=== PATIENT | female | born 1965 | race Caucasian/White ===

== ENCOUNTER → 2018-07-03 15:51 | Outpatient (CLI) | payer OTHER, SELFPAY ==
--- NOTE | 2018-07-03 | DI.MG.S_ITS ---
BILATERAL DIGITAL SCREENING MAMMOGRAM 3D/2D WITH CAD: 07/03/2018 CLINICAL: Routine screening. Comparison is made to exams dated: 06/13/2017 mammogram, 12/14/2015 mammogram, and 12/10/2014 mammogram - [facility]. The tissue of both breasts is heterogeneously dense. This may lower the sensitivity of mammography. Current study was also evaluated with a Computer Aided Detection (CAD) system. No significant masses, calcifications, or other findings are seen in either breast. There has been no significant interval change. IMPRESSION: NEGATIVE There is no mammographic evidence of malignancy. A 1 year screening mammogram is recommended. This exam was interpreted at Station ID: [id number]. NOTE: For mammograms, a report in lay terms will be sent to the patient. Approximately 15% of breast malignancies will not be visualized mammographically. In the management of a palpable breast mass, a negative mammogram must not discourage biopsy of a clinically suspicious lesion. Electronically Signed By: Issa parks/tommy:07/03/2018 17:23:05 letter sent: Normal Exam ACR BI-RADS Category 1: Negative [id number]
== END ==
PROVIDERS: PCP Nurse Practitioner Family; Visit Provider Nurse Practitioner Family
DX: Z12.31 Encounter for screening mammogram for malignant neoplasm of breast (principal)
CPT/HCPCS: 77063; 77067

== ENCOUNTER 2018-12-09 18:25 | Emergency (ER) | payer OTHER, SELFPAY ==
[2018-12-09 18:26] VITALS: BP 154/77; PULSE 88; RESP 24; TEMP 36.7; O2SAT 100
--- NOTE | 2018-12-09 18:35 | ED.ABDPAIN ---
HPI - Abdominal Pain General Chief Complaint: Abdominal Pain Stated Complaint: ABD PAIN THROWING UP PAIN STARTED IN BACK Time Seen by Provider: 12/09/18 18:30 Source: patient and family Mode of arrival: ambulatory Limitations: no limitations History of Present Illness HPI narrative: 52-year-old female nonsmoker presents with her in the chief complaint of sudden onset left flank pain with radiation into her right groin. She denies provocation or palliation. She states it is sharp and stabbing in nature. She has nausea and vomiting. She denies any change in bowel habits. She has not had dysuria, frequency or urgency. She denies any history of kidney stones. She has had no injury MD complaint: flank pain Onset (ago): hour(s) Pain Consistency: intermittent Location: L flank Severity: severe Quality: stabbing Relieving factors: nothing Exacerbating factors: nothing Related Data Previous Rx's Medication Instructions Recorded cephalexin [Keflex] 500 mg PO QID 7 Days #28 cap 12/09/18 hydrocodone-acetaminophen 1 tab PO Q4-6H PRN #10 tab 12/09/18 ketorolac 10 mg PO Q6H PRN #14 tab 12/09/18 ondansetron 4 mg PO TID-QID PRN #10 tab 12/09/18 tamsulosin [Flomax] 0.4 mg PO DAILY #10 cap 12/09/18 Allergies Allergy/AdvReac Type Severity Reaction Status Date / Time codeine [CODEINE] Allergy Unknown Verified 12/09/18 18:33 Review of Systems Constitutional Denies chills, Denies fever(s), Denies lethargy and Denies weakness Eyes Denies change in vision, Denies eye discharge, Denies irritation and Denies loss of vision ENT Ears, Nose, Mouth, and Throat: Denies change in voice, Denies neck pain and Denies sore throat Cardiovascular Denies chest pain, Denies irregular heart rhythm, Denies lightheadedness, Denies palpitations, Denies dyspnea, Denies dyspnea on exertion and Denies orthopnea Respiratory Denies cough, Denies dyspnea, Denies dyspnea on exertion and Denies wheezing Gastrointestinal Gastrointestinal: Denies abdominal pain, Denies change in bowel habits, Denies diarrhea, Reports nausea and Reports vomiting Genitourinary Denies hematuria, Reports flank pain, Denies urinary incontinence and Denies urinary urgency Musculoskeletal Denies neck pain Integumentary/Breasts Denies pruritus, Denies erythema, Denies rash and Denies wounds Neurologic Denies confusion, Denies loss of vision and Denies weakness Psychiatric Denies anxiety, Denies confusion, Denies depression, Denies homicidal ideation and Denies suicidal ideation Endocrine Denies palpitations Hematologic/Lymphatic Denies easy bruising Allergic/Immunologic Denies wheezing PFSH Social History Smoking Status: Never smoker Social History Smoking Status: Never smoker Exam Narrative Exam Narrative: GENERAL: [52] year old patient appears stated age. Well-nourished, well-developed patient, in significant distress. Unable to remain still, rocking back and forth on her cart HEAD: Atraumatic. Normocephalic. EYES: Pupils equal round and reactive. Extraocular motions intact. No scleral icterus. No injection or drainage. ENT: Nose without bleeding, purulent drainage. Throat without erythema, tonsillar hypertrophy or exudate. Airway patent. NECK: Trachea midline. Non tender CARDIOVASCULAR: Regular rate and rhythm without murmurs, gallops, or rubs. RESPIRATORY: Clear to auscultation. Breath sounds equal bilaterally. No wheezes, rales, or rhonchi. GASTROINTESTINAL: Abdomen soft, non-tender, nondistended. EXTREMITIES: No edema or joint tenderness. BACK: Nontender without deformity or crepitance. No flank tenderness. NEURO: AOx3. SKIN: No rash or erythema of visible areas Initial Vital Signs Initial Vital Signs: Vital Signs Temperature 98.1 F 12/09/18 18:26 Pulse Rate 88 12/09/18 18:26 Respiratory Rate 24 12/09/18 18:26 Blood Pressure 154/77 H 12/09/18 18:26 Pulse Oximetry 100 12/09/18 18:26 Course Orders Ordered: Discontinued Medications Hydrocodone Bitart/Acetaminophen (Vicodin Prepack) 1 bottle MISC SEEINSTR ONE Stop: 12/09/18 20:24 Last Admin: 12/09/18 20:38 Dose: 1 bottle Sodium Chloride (Normal Saline 0.9%) 1,000 mls @ 1,000 mls/hr IV BOLUS ONE Stop: 12/09/18 19:32 Last Infusion: 12/09/18 20:47 Dose: 0 mls/hr Admin: 12/09/18 18:47 Dose: 1,000 mls/hr Sodium Chloride (Normal Saline 0.9%) 1,000 mls @ 1,000 mls/hr IV BOLUS ONE Stop: 12/09/18 19:40 Last Admin: 12/09/18 18:53 Dose: Not Given Ketorolac Tromethamine (Toradol) 30 mg IV NOW ONE Stop: 12/09/18 18:34 Last Admin: 12/09/18 18:47 Dose: 30 mg Ketorolac Tromethamine (Toradol) 15 mg IV NOW ONE Stop: 12/09/18 18:42 Last Admin: 12/09/18 18:52 Dose: Not Given Ondansetron HCl (Zofran) 4 mg IV NOW ONE Stop: 12/09/18 18:31 Last Admin: 12/09/18 18:46 Dose: 4 mg Ondansetron HCl (Zofran) 4 mg IV Q4HR PRN PRN Reason: Nausea And Vomiting Ondansetron HCl (Zofran Odt Prepack) 1 bottle MISC SEEINSTR ONE Stop: 12/09/18 20:24 Last Admin: 12/09/18 20:38 Dose: 1 bottle Reevaluation(s) Reevaluation #1: Patient shows tremendous improvement after being administered the above-stated medications Vital Signs - 8 hr 12/09/18 18:26 Temperature 98.1 F Pulse Rate 88 Respiratory Rate 24 Blood Pressure 154/77 H Pulse Oximetry 100 MDM - Abdominal Pain Differential Diagnosis Differential diagnosis: Likely calculus of kidney Lab Data Result diagrams: 12/09/18 18:40 12/09/18 18:40 Lab Results 12/09/18 12/09/18 12/09/18 Range/Units 18:40 18:40 18:40 WBC 10.0 (4.5-11.0) X10^3/uL RBC 4.17 (4.0-5.2) X10^6/uL Hgb 13.3 (12.0-16.0) g/dL Hct 40.1 (36-46) % MCV 96.3 (80-100) fL MCH 32.0 (26-34) PG MCHC 33.2 (30-36) % RDW 13.4 (11.6-14.8) % Plt Count 243 (150-400) X10^3/uL Neut % (Auto) 80.8 H (50-75) % Lymph % (Auto) 12.3 L (25-40) % Trigg % (Auto) 6.0 (3-14) % Eos % (Auto) 0.4 L (2-4) % Baso % (Auto) 0.5 (0-2) % Neut # (Auto) 8100 H (1827-9360) /uL Lymph # (Auto) 1200 (4853-0999) /uL Trigg # (Auto) 600 (0-900) /uL Eos # (Auto) 0 (0-450) /uL Baso # (Auto) 100 (0-100) /uL PT 11.3 (10.1-12.7) SECONDS INR 1.0 (0.9-1.3) APTT 27 (26.4-36.2) SECONDS Sodium 139 (137-145) mmol/L Potassium 3.9 (3.4-5.1) mmol/L Chloride 98 (98-107) mmol/L Carbon Dioxide 31 (22-32) mmol/L BUN 19 H (7-17) mg/dL Creatinine 1.00 (0.52-1.04) mg/dL Estimated GFR 58.0 L (>60) mL/min BUN/Creatinine Ratio 19.0 (6-22) Glucose 121 H (70-100) mg/dL Calcium 9.6 (8.4-10.2) mg/dL Magnesium (1.6-2.3) mg/dL Total Bilirubin 0.7 (0.2-1.3) mg/dL AST 31 (14-36) IU/L ALT 25 (9-52) IU/L Alkaline Phosphatase 46 (38-126) U/L Total Protein 7.5 (6.3-8.2) g/dL Albumin 4.6 (3.5-5.0) g/dL Globulin 2.9 (1.7-4.1) g/dL Albumin/Globulin Ratio 1.6 (1.0-2.8) Lipase 50 (23-300) U/L Urine RBC (0-5/HPF) Urine WBC (0-5/HPF) Ur Squamous Epith Cells (0-5/HPF) Urine Bacteria (None) Ur Culture Indicated? 12/09/18 12/09/18 Range/Units 18:40 19:11 WBC (4.5-11.0) X10^3/uL RBC (4.0-5.2) X10^6/uL Hgb (12.0-16.0) g/dL Hct (36-46) % MCV (80-100) fL MCH (26-34) PG MCHC (30-36) % RDW (11.6-14.8) % Plt Count (150-400) X10^3/uL Neut % (Auto) (50-75) % Lymph % (Auto) (25-40) % Trigg % (Auto) (3-14) % Eos % (Auto) (2-4) % Baso % (Auto) (0-2) % Neut # (Auto) (9981-7983) /uL Lymph # (Auto) (9347-0080) /uL Trigg # (Auto) (0-900) /uL Eos # (Auto) (0-450) /uL Baso # (Auto) (0-100) /uL PT (10.1-12.7) SECONDS INR (0.9-1.3) APTT (26.4-36.2) SECONDS Sodium (137-145) mmol/L Potassium (3.4-5.1) mmol/L Chloride (98-107) mmol/L Carbon Dioxide (22-32) mmol/L BUN (7-17) mg/dL Creatinine (0.52-1.04) mg/dL Estimated GFR (>60) mL/min BUN/Creatinine Ratio (6-22) Glucose (70-100) mg/dL Calcium (8.4-10.2) mg/dL Magnesium 1.6 (1.6-2.3) mg/dL Total Bilirubin (0.2-1.3) mg/dL AST (14-36) IU/L ALT (9-52) IU/L Alkaline Phosphatase (38-126) U/L Total Protein (6.3-8.2) g/dL Albumin (3.5-5.0) g/dL Globulin (1.7-4.1) g/dL Albumin/Globulin Ratio (1.0-2.8) Lipase (23-300) U/L Urine RBC 10-30/hpf H (0-5/HPF) Urine WBC 5-10/hpf H (0-5/HPF) Ur Squamous Epith Cells 10-30 /hpf H (0-5/HPF) Urine Bacteria Few (2-10) H (None) Ur Culture Indicated? Cult not indicated Point of care testing: Urine Dip Bedside Urine Glucose Negative Bedside Urine Bilirubin - Negative Bedside Urine Ketone ++ 40 Urine Specific [place] 1.015 Bedside Urine Occult Blood ++ Bedside Urine pH 7.0 Bedside Urine Protein +/- 15 Bedside Urine Urobilinogen - Negative Bedside Urine Nitrite - Negative Bedside Urine Leukocytes +/- [address] scan - abdomen: Radiologist's impression: atient: Lauren Willams [facility]#: [id number] : 1965Acct:[id number] Age/Sex: 52 / FDate of Service: 12/09/18 Loc: ED Accession Number: [id number] Procedure: CT kidney ureter bladder (KUB) Ordering Provider: Ramiro Preciado D.O. PROCEDURE: CT KIDNEY URETER BLADDER (KUB) INDICATIONS: severe colicky L flank pain, radiates to groin, 1st stone? TECHNIQUE: Noncontrast 5 mm thick sections acquired from the diaphragms to the symphysis. 5 mm thick coronal and sagittal reformats were then performed. For radiation dose reduction, the following was used: automated exposure control, adjustment of mA and/or kV according to patient size. COMPARISON: None. FINDINGS: Image quality: Excellent. Lung bases: Lung bases are clear. Heart size is normal. Urinary system: Both kidneys are normal in size. Punctate calcification is present in the left superior renal pole. It is too small for Hounsfield unit characterization. 2 mm calcification is present within the superior right renal pole, also too small for Hounsfield unit characterization. There is mild appearance of left hydronephrosis. There is a punctate calcification in the distal left ureter. Both ureters appear non-dilated throughout their expected courses. Bladder wall thickness is normal; no calcified bladder stones. Other solid organs: Liver is normal in size. Gallbladder is unremarkable. Pancreas is normal in contours. Spleen is normal in size. No adrenal nodules. Peritoneum and bowel: Unenhanced bowel loops demonstrate normal wall thickness and caliber. No free fluid or air. Nodes and vessels: No retroperitoneal or mesenteric adenopathy by size criteria. Aorta and inferior vena cava are normal in caliber. Abdominal wall: No ventral hernias. Pelvis: No free pelvic fluid. No inguinal hernias or adenopathy. Bones: No suspicious bony lesions. No vertebral body compression fractures. IMPRESSION: 1. Punctate distal left ureter calcifications with mild left hydronephrosis and perinephric stranding. 2. Punctate bilateral nonobstructing renal calculi. Dictated by: Beatrice Montiel M.D. on 12/09/2018 at 19:12 Approved by: Beatrice Montiel M.D. on 12/09/2018 at 19:15 Discharge Plan Departure Patient Disposition: Home Clinical Impression: Calculus of kidney Discharge Date/Time: 12/09/18 20:48 Interventions: ED Discharge Assessment Last Done: 12/09/18 20:48 Instructions: DI for Kidney Stones Activity Restrictions/Additional Instructions: *You have been diagnosed with [left-sided kidney stone] *What to do: *Take medications as directed *Follow up with your primary care provider in 2-3 days, call for an appointment. Let them know you were seen in the Emergency Department and that we ask that you be seen in follow up *Return to ER if you should have any new, worsening or concerning symptoms Prescriptions: New hydrocodone-acetaminophen 5-325 mg tablet 1 tab PO Q4-6H PRN (Reason: pain) Qty: 10 RF: 0 cephalexin [Keflex] 500 mg capsule 500 mg PO QID 7 Days Qty: 28 RF: 0 ketorolac 10 mg tablet 10 mg PO Q6H PRN (Reason: pain) Qty: 14 RF: 0 tamsulosin [Flomax] 0.4 mg capsule 0.4 mg PO DAILY Qty: 10 RF: 0 ondansetron 4 mg tablet,disintegrating 4 mg PO TID-QID PRN (Reason: nausea and vomiting) Qty: 10 RF: 0 Referrals: Patty Laura ARNP [Primary Care Provider] -
--- NOTE | 2018-12-09 18:41 | DI.CT.S_ITS ---
PROCEDURE: CT KIDNEY URETER BLADDER (KUB) INDICATIONS: severe colicky L flank pain, radiates to groin, 1st stone? TECHNIQUE: Noncontrast 5 mm thick sections acquired from the diaphragms to the symphysis. 5 mm thick coronal and sagittal reformats were then performed. For radiation dose reduction, the following was used: automated exposure control, adjustment of mA and/or kV according to patient size. COMPARISON: None. FINDINGS: Image quality: Excellent. Lung bases: Lung bases are clear. Heart size is normal. Urinary system: Both kidneys are normal in size. Punctate calcification is present in the left superior renal pole. It is too small for Hounsfield unit characterization. 2 mm calcification is present within the superior right renal pole, also too small for Hounsfield unit characterization. There is mild appearance of left hydronephrosis. There is a punctate calcification in the distal left ureter. Both ureters appear non-dilated throughout their expected courses. Bladder wall thickness is normal; no calcified bladder stones. Other solid organs: Liver is normal in size. Gallbladder is unremarkable. Pancreas is normal in contours. Spleen is normal in size. No adrenal nodules. Peritoneum and bowel: Unenhanced bowel loops demonstrate normal wall thickness and caliber. No free fluid or air. Nodes and vessels: No retroperitoneal or mesenteric adenopathy by size criteria. Aorta and inferior vena cava are normal in caliber. Abdominal wall: No ventral hernias. Pelvis: No free pelvic fluid. No inguinal hernias or adenopathy. Bones: No suspicious bony lesions. No vertebral body compression fractures. IMPRESSION: 1. Punctate distal left ureter calcifications with mild left hydronephrosis and perinephric stranding. 2. Punctate bilateral nonobstructing renal calculi. Dictated by: Beatrice Montiel M.D. on 12/09/2018 at 19:12 Approved by: Beatrice Montiel M.D. on 12/09/2018 at 19:15
[2018-12-09] MEDS: ONDANSETRON 4 MG/2 ML INJ IV (18:46)
[2018-12-09 18:47] LABS: Add Manual Diff / Slide Review NO; Basophils Absolute Auto 100 /uL (0-100); Basophils Percent Auto 0.5 % (0-2); Eosinophils Absolute Auto 0 /uL (0-450); Eosinophils Percent Auto 0.4 % (2-4); Hematocrit 40.1 % (36-46); Hemoglobin 13.3 g/dL (12.0-16.0); Lymphocytes Absolute Auto 1200 /uL (1100-4500); Lymphocytes Percent Auto 12.3 % (25-40); Mean Corpuscular HGB Conc 33.2 % (30-36); Mean Corpuscular Volume 96.3 fL (80-100); Monocytes Absolute Auto 600 /uL (0-900); Neutrophils Absolute Auto 8100 /uL (1500-7000); Neutrophils Percent Auto 80.8 % (50-75); Platelet Count 243 X10^3/uL (150-400); Red Blood Cell Count 4.17 X10^6/uL (4.0-5.2); Red Cell Distribution Width 13.4 % (11.6-14.8)
[2018-12-09] MEDS: KETOROLAC 60 MG/2 ML VIAL 30 MG IV (18:47)
[2018-12-09] MEDS: SODIUM CHLORIDE 0.9% 1,000 ML 1000 ML IV (18:47)
[2018-12-09 19:01] LABS: Alanine Aminotransferase 25 IU/L (9-52); Albumin 4.6 g/dL (3.5-5.0); Albumin Globulin Ratio 1.6 (1.0-2.8); Alkaline Phosphatase 46 U/L (38-126); Aspartate Aminotransferase 31 IU/L (14-36); Bilirubin Total 0.7 mg/dL (0.2-1.3); Blood Urea Nitrogen 19 mg/dL (7-17); Calcium 9.6 mg/dL (8.4-10.2); Carbon Dioxide 31 mmol/L (22-32); Chloride 98 mmol/L (98-107); Globulin 2.9 g/dL (1.7-4.1); Glucose 121 mg/dL (70-100); HEMOLYSIS < 15 (0-50); Lipase 50 U/L (23-300); Potassium 3.9 mmol/L (3.4-5.1); Sodium 139 mmol/L (137-145); Total Protein 7.5 g/dL (6.3-8.2)
[2018-12-09 19:06] LABS: Prothrombin Time 11.3 SECONDS (10.1-12.7)
[2018-12-09 19:08] LABS: Magnesium 1.6 mg/dL (1.6-2.3)
[2018-12-09 19:09] LABS: PTT Partial Thromboplastin Tim 27 SECONDS (26.4-36.2)
[2018-12-09 19:47] LABS: Bacteria Urine Few (2-10); Culture Indicated Urine Cult Not Indicated; RBC Urine 10-30/HPF (0-5/HPF); Squamous Epithelial Cell Urine 10-30 /HPF (0-5/HPF); WBC Urine 5-10/HPF (0-5/HPF)
[2018-12-09 19:54] VITALS: BP 130/78; PULSE 58; RESP 16; O2SAT 100
[2018-12-09 20:00] VITALS: BP 121/98; PULSE 67; RESP 17; O2SAT 100
[2018-12-09] MEDS: ONDANSETRON 4 MG ODT PREPACK 1 BOTTLE MISC (20:38)
[2018-12-09] MEDS: HYDROCODONE/ACET 5/325 PREPACK 1 BOTTLE MISC (20:38)
[2018-12-09 20:48] VITALS: BP 137/71; PULSE 61; RESP 16; O2SAT 100
--- NOTE | 2018-12-10 06:01 | ED_ITS ---
HPI - Abdominal Pain General Chief Complaint: Abdominal Pain Stated Complaint: ABD PAIN THROWING UP PAIN STARTED IN BACK Time Seen by Provider: 12/09/18 18:30 Source: patient and family Mode of arrival: ambulatory Limitations: no limitations History of Present Illness HPI narrative: 52-year-old female nonsmoker presents with her in the chief complaint of sudden onset left flank pain with radiation into her right groin. She denies provocation or palliation. She states it is sharp and stabbing in nature. She has nausea and vomiting. She denies any change in bowel habits. She has not had dysuria, frequency or urgency. She denies any history of kidney stones. She has had no injury MD complaint: flank pain Onset (ago): hour(s) Pain Consistency: intermittent Location: L flank Severity: severe Quality: stabbing Relieving factors: nothing Exacerbating factors: nothing Related Data Previous Rx's Medication Instructions Recorded cephalexin [Keflex] 500 mg PO QID 7 Days #28 cap 12/09/18 hydrocodone-acetaminophen 1 tab PO Q4-6H PRN #10 tab 12/09/18 ketorolac 10 mg PO Q6H PRN #14 tab 12/09/18 ondansetron 4 mg PO TID-QID PRN #10 tab 12/09/18 tamsulosin [Flomax] 0.4 mg PO DAILY #10 cap 12/09/18 Allergies Allergy/AdvReac Type Severity Reaction Status Date / Time codeine [CODEINE] Allergy Unknown Verified 12/09/18 18:33 Review of Systems Constitutional Denies chills, Denies fever(s), Denies lethargy and Denies weakness Eyes Denies change in vision, Denies eye discharge, Denies irritation and Denies loss of vision ENT Ears, Nose, Mouth, and Throat: Denies change in voice, Denies neck pain and Denies sore throat Cardiovascular Denies chest pain, Denies irregular heart rhythm, Denies lightheadedness, Denies palpitations, Denies dyspnea, Denies dyspnea on exertion and Denies orthopnea Respiratory Denies cough, Denies dyspnea, Denies dyspnea on exertion and Denies wheezing Gastrointestinal Gastrointestinal: Denies abdominal pain, Denies change in bowel habits, Denies diarrhea, Reports nausea and Reports vomiting Genitourinary Denies hematuria, Reports flank pain, Denies urinary incontinence and Denies urinary urgency Musculoskeletal Denies neck pain Integumentary/Breasts Denies pruritus, Denies erythema, Denies rash and Denies wounds Neurologic Denies confusion, Denies loss of vision and Denies weakness Psychiatric Denies anxiety, Denies confusion, Denies depression, Denies homicidal ideation and Denies suicidal ideation Endocrine Denies palpitations Hematologic/Lymphatic Denies easy bruising Allergic/Immunologic Denies wheezing PFSH Social History Smoking Status: Never smoker Social History Smoking Status: Never smoker Exam Narrative Exam Narrative: GENERAL: [52] year old patient appears stated age. Well-nourishe d, well-developed patient, in significant distress. Unable to remain still, rocking back and forth on her cart HEAD: Atraumatic. Normocephalic. EYES: Pupils equal round and reactive. Extraocular motions intact. No scleral icterus. No injection or drainage. ENT: Nose without bleeding, purulent drainage. Throat without erythema, tonsillar hypertrophy or exudate. Airway patent. NECK: Trachea midline. Non tender CARDIOVASCULAR: Regular rate and rhythm without murmurs, gallops, or rubs. RESPIRATORY: Clear to auscultation. Breath sounds equal bilaterally. No wheezes, rales, or rhonchi. GASTROINTESTINAL: Abdomen soft, non-tender, nondistended. EXTREMITIES: No edema or joint tenderness. BACK: Nontender without deformity or crepitance. No flank tenderness. NEURO: AOx3. SKIN: No rash or erythema of visible areas Initial Vital Signs Initial Vital Signs: Vital Signs Temperature 98.1 F 12/09/18 18:26 Pulse Rate 88 12/09/18 18:26 Respiratory Rate 24 12/09/18 18:26 Blood Pressure 154/77 H 12/09/18 18:26 Pulse Oximetry 100 12/09/18 18:26 Course Orders Ordered: Discontinued Medications Hydrocodone Bitart/Acetaminophen (Vicodin Prepack) 1 bottle MISC SEEINSTR ONE Stop: 12/09/18 20:24 Last Admin: 12/09/18 20:38 Dose: 1 bottle Sodium Chloride (Normal Saline 0.9%) 1,000 mls @ 1,000 mls/hr IV BOLUS ONE Stop: 12/09/18 19:32 Last Infusion: 12/09/18 20:47 Dose: 0 mls/hr Admin: 12/09/18 18:47 Dose: 1,000 mls/hr Sodium Chloride (Normal Saline 0.9%) 1,000 mls @ 1,000 mls/hr IV BOLUS ONE Stop: 12/09/18 19:40 Last Admin: 12/09/18 18:53 Dose: Not Given Ketorolac Tromethamine (Toradol) 30 mg IV NOW ONE Stop: 12/09/18 18:34 Last Admin: 12/09/18 18:47 Dose: 30 mg Ketorolac Tromethamine (Toradol) 15 mg IV NOW ONE Stop: 12/09/18 18:42 Last Admin: 12/09/18 18:52 Dose: Not Given Ondansetron HCl (Zofran) 4 mg IV NOW ONE Stop: 12/09/18 18:31 Last Admin: 12/09/18 18:46 Dose: 4 mg Ondansetron HCl (Zofran) 4 mg IV Q4HR PRN PRN Reason: Nausea And Vomiting Ondansetron HCl (Zofran Odt Prepack) 1 bottle MISC SEEINSTR ONE Stop: 12/09/18 20:24 Last Admin: 12/09/18 20:38 Dose: 1 bottle Reevaluation(s) Reevaluation #1: Patient shows tremendous improvement after being administered the above-stated medications Vital Signs - 8 hr 12/09/18 18:26 Temperature 98.1 F Pulse Rate 88 Respiratory Rate 24 Blood Pressure 154/77 H Pulse Oximetry 100 MDM - Abdominal Pain Differential Diagnosis Differential diagnosis: Likely calculus of kidney Lab Data Result diagrams: 12/09/18 18:40 12/09/18 18:40 Lab Results 12/09/18 12/09/18 12/09/18 Range/Units 18:40 18:40 18:40 WBC 10.0 (4.5-11.0) X10^3/uL RBC 4.17 (4.0-5.2) X10^6/uL Hgb 13.3 (12.0-16.0) g/dL Hct 40.1 (36-46) % MCV 96.3 (80-100) fL MCH 32.0 (26-34) PG MCHC 33.2 (30-36) % RDW 13.4 (11.6-14.8) % Plt Count 243 (150-400) X10^3/uL Neut % (Auto) 80.8 H (50-75) % Lymph % (Auto) 12.3 L (25-40) % Carver % (Auto) 6.0 (3-14) % Eos % (Auto) 0.4 L (2-4) % Baso % (Auto) 0.5 (0-2) % Neut # (Auto) 8100 H (0014-0134) /uL Lymph # (Auto) 1200 (5145-2533) /uL Carver # (Auto) 600 (0-900) /uL Eos # (Auto) 0 (0-450) /uL Baso # (Auto) 100 (0-100) /uL PT 11.3 (10.1-12.7) SECONDS INR 1.0 (0.9-1.3) APTT 27 (26.4-36.2) SECONDS Sodium 139 (137-145) mmol/L Potassium 3.9 (3.4-5.1) mmol/L Chloride 98 (98-107) mmol/L Carbon Dioxide 31 (22-32) mmol/L BUN 19 H (7-17) mg/dL Creatinine 1.00 (0.52-1.04) mg/dL Estimated GFR 58.0 L (>60) mL/min BUN/Creatinine Ratio 19.0 (6-22) Glucose 121 H (70-100) mg/dL Calcium 9.6 (8.4-10.2) mg/dL Magnesium (1.6-2.3) mg/dL Total Bilirubin 0.7 (0.2-1.3) mg/dL AST 31 (14-36) IU/L ALT 25 (9-52) IU/L Alkaline Phosphatase 46 (38-126) U/L Total Protein 7.5 (6.3-8.2) g/dL Albumin 4.6 (3.5-5.0) g/dL Globulin 2.9 (1.7-4.1) g/dL Albumin/Globulin Ratio 1.6 (1.0-2.8) Lipase 50 (23-300) U/L Urine RBC (0-5/HPF) Urine WBC (0-5/HPF) Ur Squamous Epith Cells (0-5/HPF) Urine Bacteria (None) Ur Culture Indicated? 12/09/18 12/09/18 Range/Units 18:40 19:11 WBC (4.5-11.0) X10^3/uL RBC (4.0-5.2) X10^6/uL Hgb (12.0-16.0) g/dL Hct (36-46) % MCV (80-100) fL MCH (26-34) PG MCHC (30-36) % RDW (11.6-14.8) % Plt Count (150-400) X10^3/uL Neut % (Auto) (50-75) % Lymph % (Auto) (25-40) % Carver % (Auto) (3-14) % Eos % (Auto) (2-4) % Baso % (Auto) (0-2) % Neut # (Auto) (2772-7715) /uL Lymph # (Auto) (3724-2065) /uL Carver # (Auto) (0-900) /uL Eos # (Auto) (0-450) /uL Baso # (Auto) (0-100) /uL PT (10.1-12.7) SECONDS INR (0.9-1.3) APTT (26.4-36.2) SECONDS Sodium (137-145) mmol/L Potassium (3.4-5.1) mmol/L Chloride (98-107) mmol/L Carbon Dioxide (22-32) mmol/L BUN (7-17) mg/dL Creatinine (0.52-1.04) mg/dL Estimated GFR (>60) mL/min BUN/Creatinine Ratio (6-22) Glucose (70-100) mg/dL Calcium (8.4-10.2) mg/dL Magnesium 1.6 (1.6-2.3) mg/dL Total Bilirubin (0.2-1.3) mg/dL AST (14-36) IU/L ALT (9-52) IU/L Alkaline Phosphatase (38-126) U/L Total Protein (6.3-8.2) g/dL Albumin (3.5-5.0) g/dL Globulin (1.7-4.1) g/dL Albumin/Globulin Ratio (1.0-2.8) Lipase (23-300) U/L Urine RBC 10-30/hpf H (0-5/HPF) Urine WBC 5-10/hpf H (0-5/HPF) Ur Squamous Epith Cells 10-30 /hpf H (0-5/HPF) Urine Bacteria Few (2-10) H (None) Ur Culture Indicated? Cult not indicated Point of care testing: Urine Dip Bedside Urine Glucose Negative Bedside Urine Bilirubin - Negative Bedside Urine Ketone ++ 40 Urine Specific [place] 1.015 Bedside Urine Occult Blood ++ Bedside Urine pH 7.0 Bedside Urine Protein +/- 15 Bedside Urine Urobilinogen - Negative Bedside Urine Nitrite - Negative Bedside Urine Leukocytes +/- [address] scan - abdomen: Radiologist's impression: atient: Lauren Willams [facility]#: [id number] : 1965Acct:[id number] Age/Sex: 52 / FDate of Service: 12/09/18 Loc: ED Accession Number: [id number] Procedure: CT kidney ureter bladder (KUB) Ordering Provider: Ramiro Preciado D.O. PROCEDURE: CT KIDNEY URETER BLADDER (KUB) INDICATIONS: severe colicky L flank pain, radiates to groin, 1st stone? TECHNIQUE: Noncontrast 5 mm thick sections acquired from the diaphragms to the symphysis. 5 mm thick coronal and sagittal reformats were then performed. For radiation dose reduction, the following was used: automated exposure control, adjustment of mA and/or kV according to patient size. COMPARISON: None. FINDINGS: Image quality: Excellent. Lung bases: Lung bases are clear. Heart size is normal. Urinary system: Both kidneys are normal in size. Punctate calcification is present in the left superior renal pole. It is too small for Hounsfield unit characterization. 2 mm calcification is present within the superior right renal pole, also too small for Hounsfield unit characterization. There is mild appearance of left hydro nephrosis. There is a punctate calcification in the distal left ureter. Both ureters appear non-dilated throughout their expected courses. Bladder wall thickness is normal; no calcified bladder stones. Other solid organs: Liver is normal in size. Gallbladder is unremarkable. Pancreas is normal in contours. Spleen is normal in size. No adrenal nodules. Peritoneum and bowel: Unenhanced bowel loops demonstrate normal wall thickness and caliber. No free fluid or air. Nodes and vessels: No retroperitoneal or mesenteric adenopathy by size criteria. Aorta and inferior vena cava are normal in caliber. Abdominal wall: No ventral hernias. Pelvis: No free pelvic fluid. No inguinal hernias or adenopathy. Bones: No suspicious bony lesions. No vertebral body compression fractures. IMPRESSION: 1. Punctate distal left ureter calcifications with mild left hydronephrosis and perinephric stranding. 2. Punctate bilateral nonobstructing renal calculi. Dictated by: Beatrice Montiel M.D. on 12/09/2018 at 19:12 Approved by: Beatrice Montiel M.D. on 12/09/2018 at 19:15 Discharge Plan Departure Patient Disposition: Home Clinical Impression: Calculus of kidney Discharge Date/Time: 12/09/18 20:48 Interventions: ED Discharge Assessment Last Done: 12/09/18 20:48 Instructions: DI for Kidney Stones Activity Restrictions/Additional Instructions: *You have been diagnosed with [left-sided kidney stone] *What to do: *Take medications as directed *Follow up with your primary care provider in 2-3 days, call for an appo intment. Let them know you were seen in the Emergency Department and that we ask that you be seen in follow up *Return to ER if you should have any new, worsening or concerning symptoms Prescriptions: New hydrocodone-acetaminophen 5-325 mg tablet 1 tab PO Q4-6H PRN (Reason: pain) Qty: 10 RF: 0 cephalexin [Keflex] 500 mg capsule 500 mg PO QID 7 Days Qty: 28 RF: 0 ketorolac 10 mg tablet 10 mg PO Q6H PRN (Reason: pain) Qty: 14 RF: 0 tamsulosin [Flomax] 0.4 mg capsule 0.4 mg PO DAILY Qty: 10 RF: 0 ondansetron 4 mg tablet,disintegrating 4 mg PO TID-QID PRN (Reason: nausea and vomiting) Qty: 10 RF: 0 Referrals: Patty Laura ARNP [Primary Care Provider] -
== END 2018-12-09 20:48 | disposition home or self-care (01) ==
PROVIDERS: Nurse Practitioner Family; Emergency Provider Emergency Medicine; PCP Nurse Practitioner Family
DX: N20.0 Calculus of kidney (principal)
CPT/HCPCS: 36591; 74176; 80053; 81003; 81015; 83690; 83735; 85025; 85610; 85730; 96360; 96361; 96374; 96375; 99283; 99284; J1885; J2405

== ENCOUNTER → 2019-12-05 11:24 | Outpatient (CLI) | payer OTHER, SELFPAY ==
--- NOTE | 2019-12-05 | DI.MG.S_ITS ---
BILATERAL DIGITAL SCREENING MAMMOGRAM 3D/2D WITH CAD: 12/05/2019 CLINICAL: Routine screening. Comparison is made to exams dated: 07/03/2018 mammogram, 06/13/2017 mammogram, and 12/14/2015 mammogram - [facility]. The tissue of both breasts is heterogeneously dense. This may lower the sensitivity of mammography. Current study was also evaluated with a Computer Aided Detection (CAD) system. No significant masses, calcifications, or other findings are seen in either breast. There has been no significant interval change. IMPRESSION: NEGATIVE There is no mammographic evidence of malignancy. A 1 year screening mammogram is recommended. This exam was interpreted at Station ID: [id number]. NOTE: For mammograms, a report in lay terms will be sent to the patient. Approximately 15% of breast malignancies will not be visualized mammographically. In the management of a palpable breast mass, a negative mammogram must not discourage biopsy of a clinically suspicious lesion. Electronically Signed By: Arnaldo Cantu M.D., jr/tommy:12/05/2019 12:01:38 letter sent: Normal Exam ACR BI-RADS Category 1: Negative 3341F
== END ==
PROVIDERS: PCP Internal Medicine; Referring Provider Nurse Practitioner Family; Visit Provider Nurse Practitioner Family
DX: Z12.31 Encounter for screening mammogram for malignant neoplasm of breast (principal)
CPT/HCPCS: 77063; 77067

== ENCOUNTER → 2020-12-15 08:50 | Outpatient (CLI) | payer OTHER, SELFPAY ==
[2020-12-15 12:14] LABS: COVID19 -Nasal RAPID Negative (Negative)
== END ==
PROVIDERS: PCP Internal Medicine; Visit Provider Nurse Practitioner
DX: Z20.822 Contact with and (suspected) exposure to COVID-19 (principal); Z01.812 Encounter for preprocedural laboratory examination
CPT/HCPCS: 87635

== ENCOUNTER 2020-12-17 13:25 | Day surgery (SDC) | payer OTHER, SELFPAY ==
--- NOTE | 2020-12-17 | PATH_ITS ---
[facility] Accession Number: [id number] . 01 Material submitted: . cecum - CECAL POLYPS X2 (1CM AND 2CM) . 02 Diagnosis: Cecum, Polyps x2, Biopsies: Tubular adenoma in four of multiple fragments. MRV 12/21/2020 1111 Local . 02 Electronically signed: . Sparkle Jay MD, Pathologist NPI- [id number] . 01 Gross description: . CECAL POLYPS X2 (1CM AND 2CM): Received in formalin are multiple fragment(s) of guerrier, soft tissue measuring 1.4 x 0.4 x 0.3 cm in aggregate submitted entirely in 1 cassette(s) /GALDINO 12/18/2020 0447 Local . 02 Pathologist provided ICD-10: D12.0 . 02 CPT . 444133 Performed at: 01 [facility] [address] [id number] MD Issa Bear MD Phone: [phone] Performed at: 02 [facility] [address] [place], [place] [id number] MD Sparkle Jay MD Phone: [phone]
--- NOTE | 2020-12-17 12:21 | PM.HP.1 ---
History of Present Illness History of Present Illness Date Patient Seen: 12/17/20 Chief complaint: SCREENING COLONOSCOPY Narrative: 54 Years Old Female seen today for consideration of a screening colonoscopy. Has had 2 previous colonoscopies, first in 1982 for GI bleeding, polyps found, pathology unknown. Last colonoscopy in 1999, normal. There have been no lower GI symptoms suggesting disease such as change in bowel habits, bleeding, abdominal pain or anemia. There's been no family history of colon cancer or colon polyps. Overall health issues have been stable, including no major cardiac events for at least 6 weeks. Past Medical History: migraine with aura; 1993 history of colon Polyps - 1982 IMPAIRED FASTING GLUCOSE ECZEMA Leukopenia HYPERLIPIDEMIA, MIXED SHINGLES DYSPAREUNIA ONYCHOMYCOSIS Hypothyroidism NEPHROLITHIASIS GERD (gastroesophageal reflux disease) HYPOMAGNESEMIA VAGINITIS, ATROPHIC, POSTMENOPAUSAL Past Surgical History: Colonoscopy, 1982 indicated for GI bleeding, colon polyps, reportedly benign Colonocopy, 1999, normal [place] teeth Family History: Reviewed history from 01/03/2019 and no changes required: Maternal Grandfather -no knowledge Maternal grandmother: nothing Paternal Grandmother- Alcoholism, Heart Disease [place], Stroke in late 50's Paternal Grandfather - Diabetes, Father: no issues, osteoporosis, enciso's skin cancer, Kidney stone in 40's Mother: endometrial cancer with hysterectomy, diverticulitis, blood clot in lung, OA, intersitial cystitis, macular degeneration Siblings: Osteoporosis Social History: Marital Status: 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 Patient History Family & Social History Tobacco & Substance use: Smoking Status Never smoker alcohol intake frequency 0-2 drinks per day Substance Use Type does not use Meds Home Medications and Allergies Home Medications Medication Instructions Recorded Confirmed Type calcium phosphate,dibasic 77 77 tab PO DAILY 12/17/20 12/17/20 History mg-vitamin D3 400 unit tablet famotidine 20 mg tablet 20 mg PO DAILY 12/17/20 12/17/20 History levothyroxine 112 mcg tablet 112 mcg PO DAILY 12/17/20 12/17/20 History Allergies Allergy/AdvReac Type Severity Reaction Status Date / Time codeine [CODEINE] AdvReac Intermediate Nausea Verified 12/17/20 14:05 Review of Systems Review of Systems Narrative: See HPI. Exam Narrative Exam Narrative: GENERAL: Alert and oriented, appearing stated age and in no acute distress. HEENT: Head normocephalic/atraumatic. LUNGS: Clear to ausculation bilaterally, no wheezes, rhonchi or rales. CV: Normal S1 and S2 with regular rate and rhythm, no audible murmurs, rubs or gallops. ABDOMEN: Soft, non-tender, non-distended, no organomegaly. Positive bowel sounds. EXTREMITIES: No clubbing, cyanosis, or edema. NEURO: Cranial nerves II through XII grossly intact, no focal deficits. PSYCH: Alert and oriented x 3. SKIN: No concerning lesions. Assessment & Plan Assessment & Plan narrative: 1. History of colon polyps 2. Screening for colon cancer Plan for colonoscopy. The nature and character of the procedure as well as anticipated results were discussed. The possibility of not completing the procedure was also discussed. Possible complications including aspiration pneumonia, bleeding, perforation and reaction to medications either for sedation or preparation and missed lesions were discussed. Questions were answered and proceeding to the colonoscopy was elected. Informed consent signed. I sincerely appreciate the referral allowing me to participate in this patient's care. Please contact me with any questions or concerns.
[2020-12-17] MEDS: HYOSCYAMINE 0.125 MG TABLET PO (13:47)
[2020-12-17] MEDS: LACTATED RINGERS 1,000 ML 200 ML IV (13:47)
[2020-12-17 13:56] VITALS: BP 125/83; PULSE 61; RESP 16; TEMP 36.2; O2SAT 100; BMI 23.5
--- NOTE | 2020-12-17 14:28 | PM.OP.ENDO ---
Operative Date/Time/Diagnoses Date of procedure: 12/17/20 Procedure Notes SCOAP/Timeout: 2:32 p.m. Procedure in detail: ENDOSCOPIST: Cande Dacosta MD Sedation RN: Sharonda Ray RN Sedation start time: 2:33 p.m. Sedation end time: 3:04 p.m. PROCEDURE: Colonoscopy with cold biopsy and hemoclip placement INDICATIONS: 1. History of colon polyps 2. Screening for colon cancer MEDICATION: Levsin 0.125 mg sublingual, incremental doses of Versed and fentanyl until appropriate level sedation achieved. ASA CLASS: 2 CECAL WITHDRAWAL TIME: 11 minutes COMPLICATIONS: None. EXTENT OF PROCEDURE: Cecum. QUALITY OF PREP: Good with portions of liquid stool. PROCEDURE: Prior to insertion of the colonoscope, a digital rectal examination was accomplished with circumferential palpation of the distal rectal mucosa without significant findings being noted. The high-definition pediatric colonoscope was passed into the rectum in the usual fashion and advanced over to the cecum without difficulty. The ileocecal valve, appendiceal stoma, and medial wall all could be inspected and A 1cm sessile polyp was seen and removed in piecemeal resection with Jumbo forceps, hemoclip placed with excellent hemostasis. A smaller 2 mm polyp was also seen removed with cold biopsy forceps, excellent hemostasis. ASCENDING COLON: As the colonoscope was withdrawn, care was taken to expose and inspect the haustral folds and no abnormalities were seen. HEPATIC FLEXURE: Normal, no polyps, diverticula or other abnormalities. TRANSVERSE COLON: Normal, no polyps, diverticula or other abnormalities. DESCENDING COLON: Minor diverticulosis, otherwise, normal, no polyps or other abnormalities. SIGMOID COLON: Minor diverticulosis, otherwise, normal, no polyps or other abnormalities. RECTUM: Normal. J maneuver was produced. There was no significant perianal disease. The J maneuver was broken. The remainder of the rectum was inspected and there was no external hemorrhoid disease. The scope was withdrawn. IMPRESSION: 1. Polyp x2, 1 cm polyp removed in piecemeal resection with Jumbo forceps, hemoclip placed. 2 mm polyp removed with cold biopsy forceps, excellent hemostasis 2. Left-sided diverticulosis, minor PLAN: 1. Follow-up in clinic status post pathology results. The possibility of a missed lesion including a malignancy has been discussed with the patient previously. Potential alarm symptoms have been discussed and should be reported immediately.
[2020-12-17] MEDS: MIDAZOLAM 5 MG/5 ML VIAL IV (15:08)
[2020-12-17] MEDS: fentaNYL 250 MCG/5 ML INJ IV (15:08)
[2020-12-17 15:11] VITALS: BP 124/72; BP 125/72; PULSE 55; PULSE 57; RESP 16; TEMP 36.4; O2SAT 100
[2020-12-17 15:16] VITALS: BP 134/75; PULSE 58; RESP 16; O2SAT 99
[2020-12-17 15:21] VITALS: BP 129/72; PULSE 60; RESP 16; O2SAT 99
[2020-12-17 15:26] VITALS: BP 128/72; PULSE 50; RESP 16; O2SAT 100
[2020-12-17 15:52] VITALS: BP 117/78; PULSE 54; RESP 12; TEMP 36.1; O2SAT 100
== END 2020-12-17 15:54 | disposition home or self-care (01) ==
PROVIDERS: PCP Internal Medicine; Referring Provider Student in an Organized Health Care Education/Training Program; Visit Provider Student in an Organized Health Care Education/Training Program
PROC: 0DJD8ZZ Inspection of Lower Intestinal Tract, Via Natural or Artificial Opening Endoscopic (ICD-10-PCS; CPT 45378; principal; 2020-12-17 14:30)
DX: Z12.11 Encounter for screening for malignant neoplasm of colon (principal); Z86.010 Personal history of colon polyps; E03.9 Hypothyroidism, unspecified; E78.2 Mixed hyperlipidemia; D12.0 Benign neoplasm of cecum
CPT/HCPCS: 45380; 45382; J2250; J3010

== ENCOUNTER → 2021-01-14 15:43 | Outpatient (CLI) | payer OTHER, SELFPAY ==
--- NOTE | 2021-01-14 15:44 | DI.MG.S_ITS ---
BILATERAL DIGITAL SCREENING MAMMOGRAM 3D/2D WITH CAD: 01/14/2021 CLINICAL: Routine screening. Comparison is made to exams dated: 12/05/2019 mammogram, 07/03/2018 mammogram, and 06/13/2017 mammogram - [facility]. The tissue of both breasts is heterogeneously dense. This may lower the sensitivity of mammography. Current study was also evaluated with a Computer Aided Detection (CAD) system. No significant masses, calcifications, or other findings are seen in either breast. There has been no significant interval change. IMPRESSION: NEGATIVE There is no mammographic evidence of malignancy. A 1 year screening mammogram is recommended. This exam was interpreted at Station ID: [id number]. NOTE: For mammograms, a report in lay terms will be sent to the patient. Approximately 15% of breast malignancies will not be visualized mammographically. In the management of a palpable breast mass, a negative mammogram must not discourage biopsy of a clinically suspicious lesion. Electronically Signed By: Arnaldo Cantu M.D., jr/tommy:01/14/2021 16:14:26 letter sent: Normal Exam ACR BI-RADS Category 1: Negative 3341F
== END ==
PROVIDERS: PCP Internal Medicine; Referring Provider Internal Medicine; Visit Provider Internal Medicine
DX: Z12.31 Encounter for screening mammogram for malignant neoplasm of breast (principal)
CPT/HCPCS: 77063; 77067

== ENCOUNTER → 2021-10-04 15:06 | Outpatient (CLI) | payer OTHER, SELFPAY ==
--- NOTE | 2021-10-04 | DI.US.S_ITS ---
PROCEDURE: US THYROID INDICATIONS: Localized swelling, mass and lump, neck TECHNIQUE: Real-time scanning was performed of the thyroid gland, with image documentation. COMPARISON: None. FINDINGS: Right: Thyroid lobe measures 3.3 x 1.0 x 0.8 cm, and is homogeneous in echotexture. Left: Thyroid lobe measures 3.4 x 1.1 x 1.0 cm, and is homogenous in echotexture. Isthmus: 19 mm thick. No thyroid nodules visualized. IMPRESSION: Normal sonographic appearance of the thyroid. ACR TI-RADS definitions and recommendations: TI-RADS 1 (benign): 0 points. FNA not needed. TI-RADS 2 (not suspicious): 2 points. FNA not needed. TI-RADS 3 (mildly suspicious): 3 points. * FNA if 2.5 cm or larger, follow up if 1.5 cm or larger (at 1, 3, and 5 years). TI-RADS 4 (moderately suspicious): 4-6 points. * FNA if 1.5 cm or larger, follow up if 1 cm or larger (at 1, 2, 3, and 5 years). TI-RADS 5 (highly suspicious): 7 points or more. * FNA if 1 cm or larger, follow up if 0.5 cm or larger (every year for 5 years). Dictated by: Arlin Fox M.D. on 10/04/2021 at 17:19 Approved by: Arlin Fox M.D. on 10/04/2021 at 17:20
== END ==
PROVIDERS: PCP Internal Medicine; Referring Provider Student in an Organized Health Care Education/Training Program; Visit Provider Student in an Organized Health Care Education/Training Program
DX: R22.1 Localized swelling, mass and lump, neck (principal); E03.9 Hypothyroidism, unspecified
CPT/HCPCS: 76536

== ENCOUNTER → 2021-10-21 09:37 | Outpatient (CLI) | payer OTHER, SELFPAY ==
--- NOTE | 2021-10-21 09:43 | DI.CT.S_ITS ---
PROCEDURE: CT SOFT TISSUE NECK W CON INDICATIONS: tightness in neck TECHNIQUE: After the administration of intravenous contrast, 3.0 mm axial sections acquired from the sella to the aortic arch. Additional oblique axial 3.0 mm sections acquired through the pharynx. 3 mm thick coronal and sagittal reformats were generated. For radiation dose reduction, the following was used: automated exposure control. COMPARISON: None. FINDINGS: Skull Base: The visualized intracranial contents, skull, and orbits are unremarkable. 1.3 cm left maxillary sinus retention cyst Pharynx and Larynx: The nasopharyngeal airway is patent and midline. Parapharyngeal soft tissues including palatine tonsils and base of the tongue are normal. Retropharyngeal space unremarkable. Normal appearance of the false and true vocal cords. Muscles and Fascial Planes: Fascial planes are well maintained. No abscess or mass lesion. Lymph Nodes: No evidence of adenopathy. Vasculature: Unremarkable. Submandibular and Parotid Glands: Normal in size and attenuation. Thyroid: Unremarkable. No enlarged or calcified nodules. Bones: No acute fracture. No osteolytic or blastic lesion is evident. Normal bone mineralization. Lung Apices: The visualized lung apices are clear. IMPRESSION: 1. Normal CT of the neck with contrast Approved by: Salomon Colon M.D. on 10/21/2021 at 10:38
== END ==
PROVIDERS: PCP Internal Medicine; Referring Provider Internal Medicine; Visit Provider Internal Medicine
DX: R22.1 Localized swelling, mass and lump, neck (principal)
CPT/HCPCS: 70491

== ENCOUNTER → 2022-02-25 11:36 | Outpatient (CLI) | payer OTHER, SELFPAY ==
--- NOTE | 2022-02-25 11:37 | DI.MG.S_ITS ---
BILATERAL DIGITAL SCREENING MAMMOGRAM 3D/2D WITH CAD: 02/25/2022 CLINICAL: Routine screening. Comparison is made to exams dated: 01/14/2021 mammogram, 12/05/2019 mammogram, and 07/03/2018 mammogram - . Both breasts are heterogeneously dense, which may obscure small masses (category c / 51-75% glandular tissue). Current study was also evaluated with a Computer Aided Detection (CAD) system. No significant masses, calcifications, or other findings are seen in either breast. There has been no significant interval change. IMPRESSION: NEGATIVE There is no mammographic evidence of malignancy. A 1 year screening mammogram is recommended. Based on the Tyrer Cuzick model (a risk assessment model) the patient's lifetime risk is 13.3% and her 10 year risk is 4.7%. According to the ACR, ACS, and NCCN guidelines, an annual breast MRI exam along with mammogram is recommended if the patient's lifetime risk is 20% or greater. This exam was interpreted at Station ID: [id number]. NOTE: For mammograms, a report in lay terms will be sent to the patient. Approximately 15% of breast malignancies will not be visualized mammographically. In the management of a palpable breast mass, a negative mammogram must not discourage biopsy of a clinically suspicious lesion. Electronically Signed By: Elias khan/[email or web address]:02/27/2022 08:42:12 letter sent: Normal Exam ACR BI-RADS Category 1: Negative 3341F
== END ==
PROVIDERS: PCP Internal Medicine; Referring Provider Internal Medicine; Visit Provider Internal Medicine
DX: Z12.31 Encounter for screening mammogram for malignant neoplasm of breast (principal)
CPT/HCPCS: 77063; 77067

== ENCOUNTER → 2023-03-17 11:24 | Outpatient (CLI) | payer OTHER, SELFPAY ==
--- NOTE | 2023-03-17 | DI.MG.S_ITS ---
BILATERAL DIGITAL SCREENING MAMMOGRAM 3D/2D WITH CAD: 03/17/2023 CLINICAL: Routine screening. Comparison is made to exams dated: 02/25/2022 mammogram, 01/14/2021 mammogram, and 12/05/2019 mammogram - [facility]. There are scattered areas of fibroglandular density in both breasts (category b / 25%-50% glandular tissue). Current study was also evaluated with a Computer Aided Detection (CAD) system. No significant masses, calcifications, or other findings are seen in either breast. IMPRESSION: NEGATIVE There is no mammographic evidence of malignancy. A 1 year screening mammogram is recommended. Based on the Tyrer Cuzick model (a risk assessment model) the patient's lifetime risk is 8.8% and her 10 year risk is 3.2%. According to the ACR, ACS, and NCCN guidelines, an annual breast MRI exam along with mammogram is recommended if the patient's lifetime risk is 20% or greater. This exam was interpreted at Station ID: [id number]. NOTE: For mammograms, a report in lay terms will be sent to the patient. Approximately 15% of breast malignancies will not be visualized mammographically. In the management of a palpable breast mass, a negative mammogram must not discourage biopsy of a clinically suspicious lesion. Electronically Signed By: Clarisa Bentley M.D., PH.D [email or web address]/[email or web address]:03/19/2023 22:54:15 letter sent: Normal Exam ACR BI-RADS Category 1: Negative 3341F
== END ==
PROVIDERS: PCP Registered Nurse; Referring Provider Registered Nurse; Visit Provider Registered Nurse
DX: Z12.31 Encounter for screening mammogram for malignant neoplasm of breast (principal)
CPT/HCPCS: 77063; 77067

== ENCOUNTER → 2024-11-17 14:41 | Outpatient (CLI) | payer OTHER, SELFPAY ==
--- NOTE | 2024-11-17 14:44 | DI.MG.S_ITS ---
MM screening mammo BI: 11/17/2024. BI-RADS: 1 CLINICAL: 58-year old female for bilateral screening mammogram. Tyrer-Cuzick lifetime risk of 7.3%. No personal or first-degree family history of breast cancer. PRIOR EXAMS 03/17/2023, 02/25/2022, 01/14/2021. MAMMOGRAPHY TECHNIQUE: 2D and 3D (tomosynthesis) digital mammographic views obtained, with additional images as needed for full coverage. Current study was also evaluated with a Computer Aided Detection (CAD) system. DENSITY C. The breasts are heterogeneously dense, which may obscure small masses. MAMMOGRAPHY FINDINGS Bilateral: No suspicious mass, asymmetry, microcalcification, or other abnormality seen. No significant change from comparison. IMPRESSION: * No evidence of malignancy. RECOMMENDATIONS Bilateral * Annual screening mammography. OVERALL ASSESSMENT CATEGORY BI-RADS-1: Negative. The [employer] recommends annual screening mammography beginning at age 40 for women with average risk of breast cancer. ELECTRONICALLY SIGNED: Haven Jose M.D. on 11/17/2024 at 10:05:50 PM PT Interpreting Station ID: [id number]
== END ==
PROVIDERS: PCP Registered Nurse; Referring Provider Registered Nurse; Visit Provider Registered Nurse
DX: Z12.31 Encounter for screening mammogram for malignant neoplasm of breast (principal); R92.333 Mammographic heterogeneous density, bilateral breasts
CPT/HCPCS: 77063; 77067